=== PATIENT | male | born 1975 | race Caucasian/White ===

== ENCOUNTER 2017-01-01 14:00 | Inpatient (IN) | payer MEDICARE ==
[~2017-01-01] VITALS: Ht 188 cm; Wt 90.8 kg
[2017-01-01 14:54] LABS: HEMATOCRIT 42.9 % (39.2-51.8); HEMOGLOBIN 14.5 g/dL (13.7-18.0); WHITE BLOOD COUNT 9.5 x10^3/uL (3.4-10)
[2017-01-01 15:04] LABS: ASPARTATE AMINO TRANSFERASE 10 U/L (15-37); BLOOD UREA NITROGEN 20 mg/dL (7-18)
[2017-01-01 15:09] LABS: IS PT STATUS REG ER OR PRE ER? YES
[2017-01-01] MEDS ORDERED: TOPI50TA35 PO (15:12)
[2017-01-01] MEDS ORDERED: INSU100V5 SQ-INSULIN (15:12)
[2017-01-01] MEDS ORDERED: LOVA20TA2 PO (15:12)
[2017-01-01] MEDS ORDERED: PIPERACILLIN/TAZO/PMX 3.375GM 50 ML IV ONE (16:00)
[2017-01-01] MEDS ORDERED: VANCOMYCIN 1,800 MG in SODIUM CHLORIDE 0.9% 250 ML IV ONE (16:00)
[2017-01-01] MEDS ORDERED: VANCOMYCIN PER PHARMACY MC PRN ×2 (16:00→18:00)
[2017-01-01] MEDS ORDERED: PIPERACILLIN/TAZO/PMX 3.375GM 50 ML ONE (16:14)
[2017-01-01] MEDS ORDERED: HYDROcodone/APAP 5/325 TABLET PO PRN (18:00)
[2017-01-01] MEDS ORDERED: ACETAMINOPHEN 325 MG TABLET PO PRN (18:00)
[2017-01-01] MEDS: INSULIN ASPART 100 UNITS/ML, PEN SQ-INSULIN SCH ×2 (18:00→21:00)
[2017-01-01] MEDS ORDERED: morphine SULFATE 10 MG/ML, 1ML IVPush PRN (18:00)
[2017-01-01] MEDS ORDERED: VANCOMYCIN PMX 1GM/200ML 200 ML IV ONE (18:00)
[2017-01-01] MEDS ORDERED: METOPROLOL TARTRATE 50 MG TABLET ONE (18:34)
[2017-01-01] MEDS: SODIUM CHLORIDE 0.9% 1,000 ML IV SCH ×2 (18:41→22:09)
[2017-01-01] MEDS: METOPROLOL TARTRATE 25 MG TABLET PO SCH (18:42)
[2017-01-01] MEDS: PIPERACILLIN/TAZO/PMX 3.375GM 50 ML IV SCH ×2 (18:44→22:09)
[2017-01-01 20:32] VITALS: BP 145/88
[2017-01-01] MEDS ORDERED: PRAV20TA2 PO (20:52)
[2017-01-01] MEDS ORDERED: OMEP20CA14 PO (20:52)
[2017-01-01] MEDS ORDERED: TOPI25TA52 PO (20:52)
[2017-01-01] MEDS ORDERED: INSULIN DETEMIR 100 UNITS/ML, PEN SQ-INSULIN SCH (21:00)
[2017-01-01] MEDS ORDERED: PHARMACOKINETIC MONITORING MC PRN (21:00)
[2017-01-01] MEDS ORDERED: PHARMACOKINETIC CONSULTATION MC ONE (21:00)
[2017-01-01] MEDS ORDERED: VANCOMYCIN 2,000 MG in SODIUM CHLORIDE 0.9% 500 ML IV SCH (21:00)
[2017-01-01] MEDS ORDERED: VANCOMYCIN 1,800 MG in SODIUM CHLORIDE 0.9% 500 ML IV SCH (21:30)
[2017-01-01] MEDS: INSULIN DEGLUDEC SC SCH (22:00)
[2017-01-01 22:20] LABS: IS PT STATUS REG ER OR PRE ER? NO
[2017-01-01] MEDS ORDERED: OMNIPAQUE 350 MG/ML, 100ML BOTTLE ONE (22:37)
[2017-01-02 00:04] VITALS: BP 159/79
[2017-01-02] MEDS: ENOXAPARIN 40 MG/0.4 ML SQ SCH (00:08)
[2017-01-02 00:26] LABS: DAU SCREEN DISCLAIMER
[2017-01-02] MEDS: PIPERACILLIN/TAZO/PMX 3.375GM 50 ML IV SCH ×3 (03:59→19:23)
[2017-01-02 04:41] LABS: HEMATOCRIT 36.1 % (39.2-51.8); HEMOGLOBIN 12.4 g/dL (13.7-18.0)
[2017-01-02 04:46] LABS: ASPARTATE AMINO TRANSFERASE 9 U/L (15-37); BLOOD UREA NITROGEN 15 mg/dL (7-18)
[2017-01-02 04:52] LABS: IS PT STATUS REG ER OR PRE ER? NO
[2017-01-02 05:41] VITALS: BP 120/78
[2017-01-02] MEDS: METOPROLOL TARTRATE 25 MG TABLET PO SCH ×2 (05:42→17:13)
[2017-01-02] MEDS: VANCOMYCIN 1,800 MG in SODIUM CHLORIDE 0.9% 250 ML IV SCH ×2 (05:42→17:10)
[2017-01-02] MEDS ORDERED: VANCOMYCIN 2,000 MG in SODIUM CHLORIDE 0.9% 500 ML IV SCH (06:00)
[2017-01-02 06:43] VITALS: BP 113/72
[2017-01-02] MEDS: INSULIN ASPART 100 UNITS/ML, PEN SQ-INSULIN SCH ×4 (06:44→19:24)
[2017-01-02] MEDS ORDERED: REGADENOSON 0.4 MG/5 ML SYRINGE ONE (07:48)
[2017-01-02] MEDS: INSULIN DEGLUDEC SC SCH ×2 (09:00→20:45)
[2017-01-02] MEDS: PANTOPRAZOLE 40 MG IV IVPush SCH (10:50)
[2017-01-02] MEDS: LISINOPRIL 10 MG TABLET PO SCH (10:51)
[2017-01-02 13:07] VITALS: BP 116/77
[2017-01-02] MEDS: SODIUM CHLORIDE 0.9% 1,000 ML IV SCH (14:12)
[2017-01-02 19:17] VITALS: BP 116/75
[2017-01-03] MEDS: ENOXAPARIN 40 MG/0.4 ML SQ SCH ×2 (00:01→23:44)
[2017-01-03] MEDS: SODIUM CHLORIDE 0.9% 1,000 ML IV SCH ×3 (00:01→21:48)
[2017-01-03] MEDS: PIPERACILLIN/TAZO/PMX 3.375GM 50 ML IV SCH ×4 (02:22→20:29)
[2017-01-03 02:23] VITALS: BP 123/73
[2017-01-03] MEDS: INSULIN ASPART 100 UNITS/ML, PEN SQ-INSULIN SCH ×4 (07:00→21:45)
[2017-01-03 07:24] VITALS: BP 130/83
[2017-01-03] MEDS: INSULIN DEGLUDEC SC SCH ×2 (09:00→20:33)
[2017-01-03] MEDS: PANTOPRAZOLE 40 MG IV IVPush SCH (09:24)
[2017-01-03] MEDS: LISINOPRIL 10 MG TABLET PO SCH (09:24)
[2017-01-03] MEDS: METOPROLOL TARTRATE 25 MG TABLET PO SCH ×2 (09:25→18:17)
[2017-01-03] MEDS: VANCOMYCIN 1,900 MG in SODIUM CHLORIDE 0.9% 250 ML IV SCH (11:44)
[2017-01-03 12:45] VITALS: BP 149/90
[2017-01-03 18:57] VITALS: BP 151/84
[2017-01-04 02:00] VITALS: BP 121/77
[2017-01-04] MEDS: PIPERACILLIN/TAZO/PMX 3.375GM 50 ML IV SCH ×4 (02:02→21:10)
[2017-01-04] MEDS: VANCOMYCIN 1,900 MG in SODIUM CHLORIDE 0.9% 250 ML IV SCH ×2 (05:05→23:30)
[2017-01-04] MEDS: METOPROLOL TARTRATE 25 MG TABLET PO SCH ×2 (06:13→17:05)
[2017-01-04] MEDS: INSULIN ASPART 100 UNITS/ML, PEN SQ-INSULIN SCH ×4 (07:00→21:00)
[2017-01-04] MEDS: PANTOPRAZOLE 40 MG IV IVPush SCH (07:30)
[2017-01-04] MEDS: SODIUM CHLORIDE 0.9% 1,000 ML IV SCH (08:45)
[2017-01-04] MEDS: LISINOPRIL 10 MG TABLET PO SCH (08:46)
[2017-01-04] MEDS: INSULIN DEGLUDEC SC SCH ×2 (09:00→21:00)
[2017-01-04 09:35] VITALS: BP 144/82
[2017-01-04 12:25] VITALS: BP 168/96
[2017-01-04] MEDS: PANTOPROZOLE 40MG TABLET PO SCH (15:24)
[2017-01-04 18:41] VITALS: BP 151/89
[2017-01-04] MEDS: ENOXAPARIN 40 MG/0.4 ML SQ SCH (23:30)
[2017-01-05] MEDS: PIPERACILLIN/TAZO/PMX 3.375GM 50 ML IV SCH ×4 (02:19→20:55)
[2017-01-05 03:21] VITALS: BP 139/88
[2017-01-05 06:39] VITALS: BP 144/86
[2017-01-05] MEDS: INSULIN ASPART 100 UNITS/ML, PEN SQ-INSULIN SCH ×4 (07:00→21:00)
[2017-01-05] MEDS: METOPROLOL TARTRATE 25 MG TABLET PO SCH ×2 (07:00→18:06)
[2017-01-05] MEDS: PANTOPROZOLE 40MG TABLET PO SCH (07:30)
[2017-01-05] MEDS: INSULIN DEGLUDEC SC SCH ×2 (08:40→20:55)
[2017-01-05] MEDS: LISINOPRIL 10 MG TABLET PO SCH (09:00)
[2017-01-05] MEDS ORDERED: PANTOPRAZOLE 40 MG IV IVPush ONE (12:00)
[2017-01-05 13:52] VITALS: BP 148/85
[2017-01-05] MEDS: VANCOMYCIN 1,900 MG in SODIUM CHLORIDE 0.9% 250 ML IV SCH (18:06)
[2017-01-05 19:52] VITALS: BP 134/83
[2017-01-05] MEDS: ENOXAPARIN 40 MG/0.4 ML SQ SCH (23:54)
[2017-01-06] MEDS: PIPERACILLIN/TAZO/PMX 3.375GM 50 ML IV SCH ×2 (02:24→08:07)
[2017-01-06 05:00] LABS: HEMATOCRIT 38.7 % (39.2-51.8); HEMOGLOBIN 13.1 g/dL (13.7-18.0)
[2017-01-06 05:02] LABS: BLOOD UREA NITROGEN 15 mg/dL (7-18)
[2017-01-06 05:11] VITALS: BP 133/86
[2017-01-06] MEDS: METOPROLOL TARTRATE 25 MG TABLET PO SCH ×2 (05:14→17:07)
[2017-01-06] MEDS: PANTOPROZOLE 40MG TABLET PO SCH (08:07)
[2017-01-06] MEDS: INSULIN ASPART 100 UNITS/ML, PEN SQ-INSULIN SCH ×4 (08:07→20:50)
[2017-01-06] MEDS: LISINOPRIL 10 MG TABLET PO SCH (08:07)
[2017-01-06 08:27] VITALS: BP 148/89
[2017-01-06] MEDS: INSULIN DEGLUDEC SC SCH ×2 (09:00→20:50)
[2017-01-06] MEDS: ONDANSETRON 2MG/ML, 2ML IVPush PRN ×2 (10:22→21:57)
[2017-01-06] MEDS: DAPTOMYCIN 600 MG in SODIUM CHLORIDE 0.9% 100 ML IV SCH (12:22)
[2017-01-06] MEDS: ERTAPENEM 500 GM in SODIUM CHLORIDE 0.9% 50 ML IV SCH (13:36)
[2017-01-06 14:00] VITALS: BP 140/83
[2017-01-06] MEDS: SODIUM CHLORIDE 0.9% 1,000 ML IV SCH (17:51)
[2017-01-06 18:51] VITALS: BP 175/98
[2017-01-06 21:35] VITALS: BP 165/101
[2017-01-06] MEDS: hydrALAzine 20 MG/ML, 1ML IVPush PRN (21:55)
[2017-01-06 23:05] VITALS: BP 154/84
[2017-01-06] MEDS ORDERED: METOCLOPRAMIDE 5 MG/ML, 2ML IVPush PRN (23:30)
[2017-01-06] MEDS: ENOXAPARIN 40 MG/0.4 ML SQ SCH (23:40)
[2017-01-07] MEDS ORDERED: PROMETHAZINE 25 MG/ML, 1ML ONE (00:45)
[2017-01-07] MEDS ORDERED: PROMETHAZINE 25 MG/ML, 1ML IM ONE (01:00)
[2017-01-07 03:58] VITALS: BP 145/91
[2017-01-07 04:24] LABS: HEMATOCRIT 38.6 % (39.2-51.8); HEMOGLOBIN 13.1 g/dL (13.7-18.0); WHITE BLOOD COUNT 12.5 x10^3/uL (3.4-10)
[2017-01-07] MEDS: SODIUM CHLORIDE 0.9% 1,000 ML IV SCH ×2 (04:33→13:53)
[2017-01-07 04:49] LABS: ASPARTATE AMINO TRANSFERASE 16 U/L (15-37); BLOOD UREA NITROGEN 18 mg/dL (7-18)
[2017-01-07 06:05] VITALS: BP 123/80
[2017-01-07] MEDS: METOPROLOL TARTRATE 25 MG TABLET PO SCH ×2 (06:07→16:58)
[2017-01-07] MEDS: ONDANSETRON 2MG/ML, 2ML IVPush PRN (06:07)
[2017-01-07] MEDS: INSULIN ASPART 100 UNITS/ML, PEN SQ-INSULIN SCH ×4 (08:14→21:19)
[2017-01-07] MEDS: INSULIN DEGLUDEC SC SCH ×2 (08:14→21:18)
[2017-01-07] MEDS: PANTOPROZOLE 40MG TABLET PO SCH (08:15)
[2017-01-07 08:30] VITALS: BP 126/78
[2017-01-07] MEDS: ERTAPENEM 500 GM in SODIUM CHLORIDE 0.9% 50 ML IV SCH (13:52)
[2017-01-07 14:30] VITALS: BP 156/89
[2017-01-07 20:08] VITALS: BP 111/75
[2017-01-07] MEDS: ENOXAPARIN 40 MG/0.4 ML SQ SCH (23:30)
[2017-01-08] MEDS: SODIUM CHLORIDE 0.9% 1,000 ML IV SCH ×3 (01:18→21:17)
[2017-01-08 02:14] VITALS: BP 157/95
[2017-01-08] MEDS: METOPROLOL TARTRATE 25 MG TABLET PO SCH ×2 (05:36→18:07)
[2017-01-08 06:14] LABS: ASPARTATE AMINO TRANSFERASE 11 U/L (15-37); BLOOD UREA NITROGEN 20 mg/dL (7-18); C-REACTIVE PROTEIN, QUANT 0.54 mg/dL (0.02-0.49)
[2017-01-08 06:53] VITALS: BP 150/88
[2017-01-08] MEDS: INSULIN ASPART 100 UNITS/ML, PEN SQ-INSULIN SCH ×4 (07:00→21:22)
[2017-01-08] MEDS: PANTOPROZOLE 40MG TABLET PO SCH (07:30)
[2017-01-08] MEDS: INSULIN DEGLUDEC SC SCH ×2 (08:29→21:22)
[2017-01-08 10:13] VITALS: BP 174/103
[2017-01-08] MEDS: DAPTOMYCIN 600 MG in SODIUM CHLORIDE 0.9% 100 ML IV SCH (12:27)
[2017-01-08 13:17] VITALS: BP 193/99
[2017-01-08] MEDS ORDERED: ERGOCALCIFEROL 50,000 UNIT CAPSULE PO SCH (13:30)
[2017-01-08] MEDS: METOCLOPRAMIDE 5 MG/ML, 2ML IVPush SCH ×2 (14:18→21:21)
[2017-01-08 19:16] VITALS: BP 138/78
[2017-01-08] MEDS: ENOXAPARIN 40 MG/0.4 ML SQ SCH (23:30)
[2017-01-09 04:00] VITALS: BP 176/99
[2017-01-09 04:36] LABS: HEMATOCRIT 35.6 % (39.2-51.8); HEMOGLOBIN 12.1 g/dL (13.7-18.0); WHITE BLOOD COUNT 8.5 x10^3/uL (3.4-10)
[2017-01-09] MEDS: hydrALAzine 20 MG/ML, 1ML IVPush PRN (04:36)
[2017-01-09 04:44] LABS: BLOOD UREA NITROGEN 23 mg/dL (7-18)
[2017-01-09 04:48] LABS: ASPARTATE AMINO TRANSFERASE 7 U/L (15-37); TOTAL IRON BINDING CAPACITY 189 mcg/dL (250-450)
[2017-01-09] MEDS: METOCLOPRAMIDE 5 MG/ML, 2ML IVPush SCH ×3 (06:05→21:31)
[2017-01-09] MEDS: METOPROLOL TARTRATE 25 MG TABLET PO SCH ×2 (06:06→17:38)
[2017-01-09] MEDS: SODIUM CHLORIDE 0.9% 1,000 ML IV SCH ×2 (06:13→17:38)
[2017-01-09 08:00] VITALS: BP 165/89
[2017-01-09] MEDS: INSULIN DEGLUDEC SC SCH ×2 (09:00→21:31)
[2017-01-09] MEDS: ENOXAPARIN 30 MG/0.3 ML SQ SCH (09:00)
[2017-01-09] MEDS: AMLODIPINE 5 MG TABLET PO SCH ×2 (09:42→21:02)
[2017-01-09] MEDS: PANTOPROZOLE 40MG TABLET PO SCH (09:42)
[2017-01-09] MEDS: INSULIN ASPART 100 UNITS/ML, PEN SQ-INSULIN SCH ×4 (09:43→21:30)
[2017-01-09] MEDS: DAPTOMYCIN 600 MG in SODIUM CHLORIDE 0.9% 100 ML IV SCH (12:51)
[2017-01-09 15:44] VITALS: BP 160/83
[2017-01-09] MEDS ORDERED: ACETAMINOPHEN 325 MG TABLET PO PRN (16:00)
[2017-01-09] MEDS ORDERED: HYDROcodone/APAP 5/325 TABLET PO PRN (16:00)
[2017-01-09 20:10] VITALS: BP 146/83
[2017-01-10 02:21] VITALS: BP 154/89
[2017-01-10] MEDS: SODIUM CHLORIDE 0.9% 1,000 ML IV SCH ×2 (04:40→13:59)
[2017-01-10 05:15] LABS: BLOOD UREA NITROGEN 23 mg/dL (7-18)
[2017-01-10 05:17] LABS: HEMOGLOBIN 12.5 g/dL (13.7-18.0); WHITE BLOOD COUNT 9.4 x10^3/uL (3.4-10)
[2017-01-10] MEDS: METOPROLOL TARTRATE 25 MG TABLET PO SCH ×2 (05:32→17:03)
[2017-01-10] MEDS: METOCLOPRAMIDE 5 MG/ML, 2ML IVPush SCH ×3 (05:32→21:08)
[2017-01-10] MEDS: INSULIN ASPART 100 UNITS/ML, PEN SQ-INSULIN SCH ×4 (07:00→21:01)
[2017-01-10] MEDS: INSULIN DEGLUDEC SC SCH ×2 (08:09→21:02)
[2017-01-10] MEDS: AMLODIPINE 5 MG TABLET PO SCH ×2 (08:11→21:01)
[2017-01-10] MEDS: ENOXAPARIN 30 MG/0.3 ML SQ SCH (08:11)
[2017-01-10] MEDS: PANTOPROZOLE 40MG TABLET PO SCH (08:11)
[2017-01-10 08:36] VITALS: BP 132/77
[2017-01-10] MEDS: DAPTOMYCIN 600 MG in SODIUM CHLORIDE 0.9% 100 ML IV SCH (12:05)
[2017-01-10 15:01] VITALS: BP 168/88
[2017-01-10] MEDS ORDERED: POTASSIUM CHLORIDE 20 MEQ TAB.ER.PRT PO SCH (17:00)
[2017-01-10 19:04] VITALS: BP 141/77
[2017-01-11] MEDS: SODIUM CHLORIDE 0.9% 1,000 ML IV SCH
[2017-01-11 00:59] VITALS: BP 145/84
[2017-01-11] MEDS: METOCLOPRAMIDE 5 MG/ML, 2ML IVPush SCH (06:39)
[2017-01-11] MEDS: METOPROLOL TARTRATE 25 MG TABLET PO SCH (06:40)
[2017-01-11] MEDS: INSULIN ASPART 100 UNITS/ML, PEN SQ-INSULIN SCH (07:00)
[2017-01-11 07:31] VITALS: BP 135/80
[2017-01-11] MEDS: AMLODIPINE 5 MG TABLET PO SCH (07:52)
[2017-01-11] MEDS: PANTOPROZOLE 40MG TABLET PO SCH (07:53)
[2017-01-11] MEDS: INSULIN DEGLUDEC SC SCH (07:54)
[2017-01-11] MEDS ORDERED: ENOXAPARIN 40 MG/0.4 ML SQ SCH (09:00)
[2017-01-11] MEDS ORDERED: AMLO5TAB2 PO (09:27)
[2017-01-11] MEDS ORDERED: METO5TAB57 PO (09:27)
[2017-01-11] MEDS ORDERED: HYDR-3343 PO (09:27)
[2017-01-11] MEDS ORDERED: ERGO500017 PO (09:27)
[2017-01-11] MEDS ORDERED: METO25TA35 PO (09:27)
[2017-01-11] MEDS ORDERED: TRISEBA SC (09:27)
== END 2017-01-11 11:19 | disposition home or self-care (01) | DRG 637 ==
LOC: ED 18:26 → EDIP 18:37 → 5SO 20:21 → 3NE 01-07 15:50
PROVIDERS: ADMIT Internal Medicine; ATTEND Hospitalist
PROC: 02HV33Z Insertion of Infusion Device into Superior Vena Cava, Percutaneous Approach (ICD-10-PCS; principal; 2017-01-06)
PROC: B548ZZA Ultrasonography of Superior Vena Cava, Guidance (ICD-10-PCS; 2017-01-06)
DX: E11.621 Type 2 diabetes mellitus with foot ulcer (principal); E43 Unspecified severe protein-calorie malnutrition; M86.171 Other acute osteomyelitis, right ankle and foot; N17.0 Acute kidney failure with tubular necrosis; E11.00 Type 2 diabetes mellitus with hyperosmolarity without nonketotic hyperglycemic-hyperosmolar coma (NKHHC); D69.6 Thrombocytopenia, unspecified; E11.42 Type 2 diabetes mellitus with diabetic polyneuropathy; E11.43 Type 2 diabetes mellitus with diabetic autonomic (poly)neuropathy; E11.69 Type 2 diabetes mellitus with other specified complication; E11.65 Type 2 diabetes mellitus with hyperglycemia; D18.03 Hemangioma of intra-abdominal structures; D64.9 Anemia, unspecified; E78.5 Hyperlipidemia, unspecified; G89.29 Other chronic pain; I10 Essential (primary) hypertension; K21.9 Gastro-esophageal reflux disease without esophagitis; K31.84 Gastroparesis; L08.9 Local infection of the skin and subcutaneous tissue, unspecified; N14.1 Nephropathy induced by other drugs, medicaments and biological substances; M25.50 Pain in unspecified joint; R79.89 Other specified abnormal findings of blood chemistry; Z53.20 Procedure and treatment not carried out because of patient's decision for unspecified reasons; N25.0 Renal osteodystrophy; T50.8X5A Adverse effect of diagnostic agents, initial encounter; Y92.89 Other specified places as the place of occurrence of the external cause; Z79.4 Long term (current) use of insulin; Z80.3 Family history of malignant neoplasm of breast; Z83.3 Family history of diabetes mellitus; Z86.14 Personal history of Methicillin resistant Staphylococcus aureus infection; Z89.421 Acquired absence of other right toe(s); Z91.19 Patient's noncompliance with other medical treatment and regimen; Z68.25 Body mass index [BMI] 25.0-25.9, adult; Z88.2 Allergy status to sulfonamides; Z88.8 Allergy status to other drugs, medicaments and biological substances
CPT/HCPCS: 36415; 36569; 71010; 71275; 74177; 76937; 77001; 78452; 80048; 80053; 80069; 80202; 80307; 81003; 82150; 82306; 82550; 82570; 82728; 82962; 83036; 83540; 83550; 83605; 83690; 83735; 83970; 84100; 84145; 84156; 84439; 84443; 84484; 84550; 85025; 85610; 85651; 86140; 86141; 87040; 87070; 87205; 93005; 93017; 93306; 96365; 96366; 96368; J0878; J1335; J1650; J1815; J2405; J2543; J2550; J2785; J3370; Q9967; A9502; C1751; C9113; C9898; G0479; J0360; J2765; J7030; J7050

== ENCOUNTER → 2017-01-27 | Outpatient (CLI) | payer MEDICARE ==
[~2017-01-27] MED LIST: AMLO5TAB2 PO; ERGO500017 PO; HYDR-3343 PO; INSU100V5 SQ-INSULIN; LOVA20TA2 PO; METO25TA35 PO; METO5TAB57 PO; OMEP20CA14 PO; PRAV20TA2 PO; TOPI25TA52 PO; TOPI50TA35 PO; TRISEBA SC
== END | disposition home or self-care (01) ==
LOC: WOUND 14:24
PROVIDERS: ATTEND Podiatrist Foot & Ankle Surgery
DX: E11.621 Type 2 diabetes mellitus with foot ulcer (principal); L97.511 Non-pressure chronic ulcer of other part of right foot limited to breakdown of skin; L97.414 Non-pressure chronic ulcer of right heel and midfoot with necrosis of bone; L97.412 Non-pressure chronic ulcer of right heel and midfoot with fat layer exposed; E11.42 Type 2 diabetes mellitus with diabetic polyneuropathy; E11.69 Type 2 diabetes mellitus with other specified complication; M86.671 Other chronic osteomyelitis, right ankle and foot; K21.9 Gastro-esophageal reflux disease without esophagitis; Z79.4 Long term (current) use of insulin; I10 Essential (primary) hypertension; E78.5 Hyperlipidemia, unspecified
CPT/HCPCS: 11042

== ENCOUNTER → 2017-01-31 | Outpatient (CLI) | payer MEDICARE | END | disposition home or self-care (01) | LOC: CFH 11:39 | PROVIDERS: ATTEND Podiatrist Foot & Ankle Surgery | DX: M86.171 Other acute osteomyelitis, right ankle and foot (principal) ==

== ENCOUNTER → 2017-02-03 | Outpatient (CLI) | payer MEDICARE | END | disposition home or self-care (01) | LOC: WOUND 14:34 | PROVIDERS: ATTEND Podiatrist Foot & Ankle Surgery | DX: E11.621 Type 2 diabetes mellitus with foot ulcer (principal); L97.414 Non-pressure chronic ulcer of right heel and midfoot with necrosis of bone; E11.69 Type 2 diabetes mellitus with other specified complication; M86.171 Other acute osteomyelitis, right ankle and foot; I10 Essential (primary) hypertension; K21.9 Gastro-esophageal reflux disease without esophagitis; E78.5 Hyperlipidemia, unspecified; M86.671 Other chronic osteomyelitis, right ankle and foot; E11.42 Type 2 diabetes mellitus with diabetic polyneuropathy; Z89.412 Acquired absence of left great toe; Z89.411 Acquired absence of right great toe; Z72.89 Other problems related to lifestyle; Z85.3 Personal history of malignant neoplasm of breast; E43 Unspecified severe protein-calorie malnutrition; Z86.14 Personal history of Methicillin resistant Staphylococcus aureus infection | CPT/HCPCS: 11042 ==

== ENCOUNTER → 2017-02-17 | Outpatient (CLI) | payer MEDICARE | END | disposition home or self-care (01) | LOC: WOUND 14:39 | PROVIDERS: ATTEND Podiatrist Foot & Ankle Surgery | DX: E11.621 Type 2 diabetes mellitus with foot ulcer (principal); L97.414 Non-pressure chronic ulcer of right heel and midfoot with necrosis of bone; L97.412 Non-pressure chronic ulcer of right heel and midfoot with fat layer exposed; E11.00 Type 2 diabetes mellitus with hyperosmolarity without nonketotic hyperglycemic-hyperosmolar coma (NKHHC); E11.69 Type 2 diabetes mellitus with other specified complication; E11.42 Type 2 diabetes mellitus with diabetic polyneuropathy; E11.43 Type 2 diabetes mellitus with diabetic autonomic (poly)neuropathy; B35.3 Tinea pedis; K21.9 Gastro-esophageal reflux disease without esophagitis; I10 Essential (primary) hypertension; M86.671 Other chronic osteomyelitis, right ankle and foot; Z89.421 Acquired absence of other right toe(s); Z68.25 Body mass index [BMI] 25.0-25.9, adult; Z79.4 Long term (current) use of insulin; Z85.3 Personal history of malignant neoplasm of breast; Z89.411 Acquired absence of right great toe; Z89.412 Acquired absence of left great toe; Z72.89 Other problems related to lifestyle | CPT/HCPCS: 11042 ==

== ENCOUNTER → 2017-03-03 | Outpatient (CLI) | payer MEDICARE | END | disposition home or self-care (01) | LOC: WOUND 14:00 | PROVIDERS: ATTEND Podiatrist Foot & Ankle Surgery | DX: E11.621 Type 2 diabetes mellitus with foot ulcer (principal); L97.414 Non-pressure chronic ulcer of right heel and midfoot with necrosis of bone; L97.412 Non-pressure chronic ulcer of right heel and midfoot with fat layer exposed; E11.42 Type 2 diabetes mellitus with diabetic polyneuropathy; E11.69 Type 2 diabetes mellitus with other specified complication; M86.171 Other acute osteomyelitis, right ankle and foot; M86.671 Other chronic osteomyelitis, right ankle and foot; B35.3 Tinea pedis; I10 Essential (primary) hypertension; K21.9 Gastro-esophageal reflux disease without esophagitis; E78.5 Hyperlipidemia, unspecified; E11.43 Type 2 diabetes mellitus with diabetic autonomic (poly)neuropathy; K31.84 Gastroparesis; G89.29 Other chronic pain; Z85.3 Personal history of malignant neoplasm of breast; Z72.89 Other problems related to lifestyle; Z79.4 Long term (current) use of insulin; Z89.411 Acquired absence of right great toe; Z89.412 Acquired absence of left great toe; Z89.421 Acquired absence of other right toe(s) | CPT/HCPCS: 11042 ==

== ENCOUNTER → 2017-03-10 | Outpatient (CLI) | payer MEDICARE | END | disposition home or self-care (01) | LOC: WOUND 13:00 | PROVIDERS: ATTEND Podiatrist Foot & Ankle Surgery | DX: E11.621 Type 2 diabetes mellitus with foot ulcer (principal); L97.511 Non-pressure chronic ulcer of other part of right foot limited to breakdown of skin; I10 Essential (primary) hypertension; K21.9 Gastro-esophageal reflux disease without esophagitis; E78.5 Hyperlipidemia, unspecified; E11.69 Type 2 diabetes mellitus with other specified complication; M86.171 Other acute osteomyelitis, right ankle and foot; M86.671 Other chronic osteomyelitis, right ankle and foot; G89.29 Other chronic pain; E11.43 Type 2 diabetes mellitus with diabetic autonomic (poly)neuropathy; E11.42 Type 2 diabetes mellitus with diabetic polyneuropathy; Z85.3 Personal history of malignant neoplasm of breast; Z72.89 Other problems related to lifestyle; Z79.4 Long term (current) use of insulin; Z89.411 Acquired absence of right great toe; Z89.421 Acquired absence of other right toe(s); Z89.412 Acquired absence of left great toe | CPT/HCPCS: 11042 ==

== ENCOUNTER → 2017-03-17 | Outpatient (CLI) | payer MEDICARE | END | disposition home or self-care (01) | LOC: WOUND 13:56 | PROVIDERS: ATTEND Podiatrist Foot & Ankle Surgery | DX: E11.621 Type 2 diabetes mellitus with foot ulcer (principal); L97.414 Non-pressure chronic ulcer of right heel and midfoot with necrosis of bone; E11.69 Type 2 diabetes mellitus with other specified complication; M86.171 Other acute osteomyelitis, right ankle and foot; M86.671 Other chronic osteomyelitis, right ankle and foot; E11.42 Type 2 diabetes mellitus with diabetic polyneuropathy; B35.3 Tinea pedis; I10 Essential (primary) hypertension; K21.9 Gastro-esophageal reflux disease without esophagitis; E78.5 Hyperlipidemia, unspecified; E11.43 Type 2 diabetes mellitus with diabetic autonomic (poly)neuropathy; K31.84 Gastroparesis; G89.29 Other chronic pain; Z85.3 Personal history of malignant neoplasm of breast; Z89.411 Acquired absence of right great toe; Z89.422 Acquired absence of other left toe(s); Z89.412 Acquired absence of left great toe; Z89.421 Acquired absence of other right toe(s); Z79.4 Long term (current) use of insulin; Z72.89 Other problems related to lifestyle | CPT/HCPCS: 11042 ==

== ENCOUNTER → 2017-03-24 | Outpatient (CLI) | payer MEDICARE | END | disposition home or self-care (01) | LOC: WOUND 13:52 | PROVIDERS: ATTEND Podiatrist Foot & Ankle Surgery | DX: E11.621 Type 2 diabetes mellitus with foot ulcer (principal); L97.412 Non-pressure chronic ulcer of right heel and midfoot with fat layer exposed; E11.69 Type 2 diabetes mellitus with other specified complication; M86.171 Other acute osteomyelitis, right ankle and foot; M86.671 Other chronic osteomyelitis, right ankle and foot; E11.42 Type 2 diabetes mellitus with diabetic polyneuropathy; B35.3 Tinea pedis; I10 Essential (primary) hypertension; K21.9 Gastro-esophageal reflux disease without esophagitis; E78.5 Hyperlipidemia, unspecified; G89.29 Other chronic pain; E11.43 Type 2 diabetes mellitus with diabetic autonomic (poly)neuropathy; K31.84 Gastroparesis; Z85.3 Personal history of malignant neoplasm of breast; Z79.4 Long term (current) use of insulin; Z72.89 Other problems related to lifestyle; Z89.411 Acquired absence of right great toe; Z89.422 Acquired absence of other left toe(s); Z89.412 Acquired absence of left great toe; Z89.421 Acquired absence of other right toe(s) | CPT/HCPCS: 11042; 11043 ==

== ENCOUNTER → 2017-03-31 | Outpatient (CLI) | payer MEDICARE | END | disposition home or self-care (01) | LOC: WOUND 14:02 | PROVIDERS: ATTEND Podiatrist Foot & Ankle Surgery | DX: E11.621 Type 2 diabetes mellitus with foot ulcer (principal); L97.414 Non-pressure chronic ulcer of right heel and midfoot with necrosis of bone; E11.42 Type 2 diabetes mellitus with diabetic polyneuropathy; E11.69 Type 2 diabetes mellitus with other specified complication; M86.171 Other acute osteomyelitis, right ankle and foot; M86.671 Other chronic osteomyelitis, right ankle and foot; B35.3 Tinea pedis; I10 Essential (primary) hypertension; K21.9 Gastro-esophageal reflux disease without esophagitis; E78.5 Hyperlipidemia, unspecified; G89.29 Other chronic pain; E11.43 Type 2 diabetes mellitus with diabetic autonomic (poly)neuropathy; K31.84 Gastroparesis; Z89.422 Acquired absence of other left toe(s); Z89.412 Acquired absence of left great toe; Z89.411 Acquired absence of right great toe; Z89.421 Acquired absence of other right toe(s); Z85.3 Personal history of malignant neoplasm of breast; Z72.89 Other problems related to lifestyle; Z79.4 Long term (current) use of insulin | CPT/HCPCS: 11042 ==

== ENCOUNTER → 2017-04-07 | Outpatient (CLI) | payer MEDICAID, MEDICARE | END | disposition home or self-care (01) | LOC: WOUND 13:54 | PROVIDERS: ATTEND Podiatrist Foot & Ankle Surgery | DX: E11.21 Type 2 diabetes mellitus with diabetic nephropathy (principal); L97.414 Non-pressure chronic ulcer of right heel and midfoot with necrosis of bone; E11.42 Type 2 diabetes mellitus with diabetic polyneuropathy; E11.69 Type 2 diabetes mellitus with other specified complication; M86.171 Other acute osteomyelitis, right ankle and foot; M86.671 Other chronic osteomyelitis, right ankle and foot; B35.3 Tinea pedis; E78.5 Hyperlipidemia, unspecified; K21.9 Gastro-esophageal reflux disease without esophagitis; E11.43 Type 2 diabetes mellitus with diabetic autonomic (poly)neuropathy; K31.84 Gastroparesis; G89.29 Other chronic pain; I10 Essential (primary) hypertension; Z85.3 Personal history of malignant neoplasm of breast; Z89.422 Acquired absence of other left toe(s); Z89.412 Acquired absence of left great toe; Z89.421 Acquired absence of other right toe(s); Z89.411 Acquired absence of right great toe; Z79.4 Long term (current) use of insulin | CPT/HCPCS: 11042 ==

== ENCOUNTER → 2017-04-14 | Outpatient (CLI) | payer MEDICARE | END | disposition home or self-care (01) | LOC: WOUND 13:37 | PROVIDERS: ATTEND Podiatrist Foot & Ankle Surgery | DX: E11.621 Type 2 diabetes mellitus with foot ulcer (principal); L97.412 Non-pressure chronic ulcer of right heel and midfoot with fat layer exposed; E11.69 Type 2 diabetes mellitus with other specified complication; M86.171 Other acute osteomyelitis, right ankle and foot; M86.671 Other chronic osteomyelitis, right ankle and foot; E11.43 Type 2 diabetes mellitus with diabetic autonomic (poly)neuropathy; B35.3 Tinea pedis; K21.9 Gastro-esophageal reflux disease without esophagitis; I10 Essential (primary) hypertension; E78.5 Hyperlipidemia, unspecified; G89.29 Other chronic pain; Z79.4 Long term (current) use of insulin; Z85.3 Personal history of malignant neoplasm of breast; Z72.89 Other problems related to lifestyle; Z89.412 Acquired absence of left great toe; Z89.411 Acquired absence of right great toe | CPT/HCPCS: 11042; 97597 ==

== ENCOUNTER → 2017-04-21 | Outpatient (CLI) | payer MEDICARE | END | disposition home or self-care (01) | LOC: WOUND 13:37 | PROVIDERS: ATTEND Podiatrist Foot & Ankle Surgery | DX: E11.621 Type 2 diabetes mellitus with foot ulcer (principal); L97.412 Non-pressure chronic ulcer of right heel and midfoot with fat layer exposed; L97.511 Non-pressure chronic ulcer of other part of right foot limited to breakdown of skin; E11.42 Type 2 diabetes mellitus with diabetic polyneuropathy; E11.69 Type 2 diabetes mellitus with other specified complication; M86.671 Other chronic osteomyelitis, right ankle and foot; M86.171 Other acute osteomyelitis, right ankle and foot; I10 Essential (primary) hypertension; B35.3 Tinea pedis; K21.9 Gastro-esophageal reflux disease without esophagitis; E78.5 Hyperlipidemia, unspecified; E11.43 Type 2 diabetes mellitus with diabetic autonomic (poly)neuropathy; K31.84 Gastroparesis; E11.21 Type 2 diabetes mellitus with diabetic nephropathy; Z85.3 Personal history of malignant neoplasm of breast; Z89.422 Acquired absence of other left toe(s); Z89.421 Acquired absence of other right toe(s); Z72.89 Other problems related to lifestyle; Z79.4 Long term (current) use of insulin | CPT/HCPCS: 97597 ==

== ENCOUNTER → 2017-04-28 | Outpatient (CLI) | payer MEDICARE | END | disposition home or self-care (01) | LOC: WOUND 08:30 | PROVIDERS: ATTEND Podiatrist Foot & Ankle Surgery | DX: E11.621 Type 2 diabetes mellitus with foot ulcer (principal); L97.412 Non-pressure chronic ulcer of right heel and midfoot with fat layer exposed; E11.69 Type 2 diabetes mellitus with other specified complication; M86.171 Other acute osteomyelitis, right ankle and foot; M86.671 Other chronic osteomyelitis, right ankle and foot; E11.42 Type 2 diabetes mellitus with diabetic polyneuropathy; E11.21 Type 2 diabetes mellitus with diabetic nephropathy; B35.3 Tinea pedis; I10 Essential (primary) hypertension; K21.9 Gastro-esophageal reflux disease without esophagitis; K31.84 Gastroparesis; E78.5 Hyperlipidemia, unspecified; G89.29 Other chronic pain; Z85.3 Personal history of malignant neoplasm of breast; Z89.422 Acquired absence of other left toe(s); Z89.421 Acquired absence of other right toe(s); Z89.412 Acquired absence of left great toe; Z89.411 Acquired absence of right great toe; Z79.4 Long term (current) use of insulin; Z72.89 Other problems related to lifestyle | CPT/HCPCS: G0463; WOU0463 ==

== ENCOUNTER → 2017-10-20 | Outpatient (CLI) | payer MEDICARE | END | disposition home or self-care (01) | LOC: CFH 11:12 | PROVIDERS: ATTEND Nurse Practitioner Family | DX: R22.32 Localized swelling, mass and lump, left upper limb (principal); M25.512 Pain in left shoulder ==